=== PATIENT | male | born 1990 | race Native Hawaiian/Other Pacific Islander ===

== ENCOUNTER 2020-03-30 17:09 | Emergency (ER) | payer SELFPAY ==
[2020-03-30 17:24] VITALS: BP 125/74
[2020-03-30] MEDS ORDERED: DIPHtheria,PERTUSSIS(ACELL),TETANUS VACCINE/PF 0.5 ML VIAL IM ONE (17:55)
[2020-03-30] MEDS ORDERED: ACETAMINOPHEN 325 MG TAB PO ONE (17:55)
--- NOTE | 2020-03-30 17:58 | Emergency Department Report ---
<ALLA WEBB - Last Filed: 03/30/20 17:54> ED Upper Extremity Inj HPI - General Chief Complaint: Extremity Injury, Upper Stated Complaint: LFT HAND NAIL/PAIN Time Seen by Provider: 03/30/20 17:53 Source: patient Mode of arrival: Ambulatory Limitations: No Limitations - History of Present Illness Initial Comments: The patient was evaluated in the emergency department for symptoms described in the history of present illness. He/she was evaluated in the context of the global COVID-19 pandemic, which necessitated consideration that the patient might be at risk for infection with the virus that causes COVID-19. Institutional protocols and algorithms that pertain to the evaluation of patients at risk for COVID-19 are in a state of rapid change based on information released by regulatory bodies including the CDC and federal and state organizations. These policies and algorithms were followed during the patient's care in the emergency department. Please note that these policies, procedures and recommendations changed on a rapid basis. 29-year-old male presents to the emergency room for nail and left hand. Patient states he was putting nails in the roof when his hand gotten away. Patient reports pain and bleeding has been controlled. Complaint: Injury to:: left, hand -: This evening Other Extremity Injury: Hand: Left Other Injuries: none Handedness: right Place: work Severity scale (0 -10): 8 Improves With: none Worsens With: none Context: injury Associated Symptoms: denies other symptoms - Related Data Previous Rx's Medication Instructions Recorded Last Taken Type Ibuprofen [Motrin 600 MG tab] 600 mg PO Q8H PRN #21 tablet 03/30/20 Unknown Rx cephALEXin [Keflex] 500 mg PO Q12HR 7 Days #14 cap 03/30/20 Unknown Rx Allergies Allergy/AdvReac Type Severity Reaction Status Date / Time Unable to Assess Allergy Unverified 03/30/20 17:15 ED Review of Systems Comment: All other systems reviewed and negative ED Past Medical Hx - Medications Home Medications: Home Medications Medication Instructions Recorded Confirmed Last Taken Type Ibuprofen [Motrin 600 MG tab] 600 mg PO Q8H PRN #21 tablet 03/30/20 Unknown Rx cephALEXin [Keflex] 500 mg PO Q12HR 7 Days #14 cap 03/30/20 Unknown Rx ED Physical Exam - General Limitations: No Limitations General appearance: alert, in no apparent distress - Head Head exam: Present: atraumatic, normocephalic - Eye Eye exam: Present: normal appearance - ENT ENT exam: Present: mucous membranes moist - Neck Neck exam: Present: normal inspection - Respiratory Respiratory exam: Present: accessory muscle use - Expanded Upper Extremity Exam Left Shoulder Exam: Present: normal inspection Upper Arm exam: Present: normal inspection Elbow exam: Present: normal inspection Forearm Wrist exam: Present: normal inspection Hand Wrist exam: Present: other (Male in hand between third and fourth digit of the flesh no bone involvement) Neuro motor exam: Present: wrist extension intact, thumb opposition intact, thumb IP flexion intact, thumb adduction intact, fingers 2-5 abduction intact Neurosensory exam: Present: 2-point discrimination, radial nerve intact, ulnar nerve intact, median nerve intact Vascular: Present: vascular compromise - Back Exam Back exam: Present: normal inspection, full ROM - Neurological Exam Neurological exam: Present: alert, oriented X3 - Psychiatric Psychiatric exam: Present: normal affect, normal mood - Skin Skin exam: Present: warm, dry, intact, normal color. Absent: rash - Procedure Description Procedures done: Foreign body removal from left hand. Patient was cleaned please sterile dressing anesthesia of pubic cane 3 mL for digital block hemostats were used to pull nail. Pressure dressing applied patient tolerated well ED Medical Decision Making - Medical Decision Making 29-year-old male presents to the emergency room for nail and left hand. Patient states he was putting nails in the roof when his hand gotten away. Patient reports pain and bleeding has been controlled. Dr. Armstrong came to evaluate patient and pulled out now after I applied a nesthesia. Patient be discharged home on Keflex and ibuprofen patient was given a Adacel injection and Tylenol. Patient is to keep wound clean and dry ED Disposition Clinical Impression: Injury of left hand by nail gun Disposition: DC-01 TO HOME OR SELFCARE Is pt being admited?: No Does the pt Need Aspirin: No Condition: Stable Additional Instructions: Please keep wound clean and dry. Complete antibiotics take pain medication as needed follow-up with your primary care provider if you have any further concerns. Por favor, mantenga la herida limpia y seca. Los antibiticos completos kerri analgsicos segn sea necesario para hacer el seguimiento con haynes proveedor de atencin primaria si tiene ms preocupaciones. Prescriptions: cephALEXin [Keflex] 500 mg PO Q12HR 7 Days #14 cap Ibuprofen [Motrin 600 MG tab] 600 mg PO Q8H PRN #21 tablet PRN Reason: Pain Referrals: [facility] [Provider Group] - 3-5 Days Forms: Work/School Release Form(ED) <ERVINNORMA Lucero - Last Filed: 03/30/20 19:00> ED Review of Systems ROS: Stated complaint: LFT HAND NAIL/PAIN Other details as noted in HPI ED Course Vital Signs 03/30/20 03/30/20 17:23 18:32 Temperature 99.1 F Pulse Rate 75 Respiratory 18 18 Rate Blood Pressure 125/74 [Right] O2 Sat by Pulse 100 Oximetry - Procedure Description Procedures done: The midlevel provider provided local anesthesia and digital block. I then removed the jose luis nail from the webbing/skin between the second and third digit using traction from the hemostats and countertraction down on the hand. There was some initial bleeding that stopped with pressure and a sterile pressure dressing was applied. Less than 5 cc of blood loss and the patient tolerated the procedure well. Critical care attestation.: If time is entered above; I have spent that time in minutes in the direct care of this critically ill patient, excluding procedure time. ED Disposition Is pt being admited?: No
== END 2020-03-30 18:53 | disposition home or self-care (01) ==
LOC: ED 17:09
DX: S69.92XA Unspecified injury of left wrist, hand and finger(s), initial encounter (principal); Z79.899 Other long term (current) drug therapy; X58.XXXA Exposure to other specified factors, initial encounter; Y93.89 Activity, other specified; Y92.89 Other specified places as the place of occurrence of the external cause; Y99.0 Civilian activity done for income or pay
CPT/HCPCS: 90471; 90715